=== PATIENT | male | born 1965 | race Caucasian/White ===

== ENCOUNTER 2016-11-11 11:03 | Day surgery (SDC) | payer OTHER ==
[~2016-11-11] VITALS: Ht 182.9 cm; Wt 75.8 kg
[~2016-11-11 11:03] MED LIST: ASPI-664 PO; ATEN-51 PO; ESCI20TA PO; HYDR-902 PO; LISI2.5T59 PO; LOVA40TA64 PO; ZOLP10TA5 PO
[2016-11-11 11:59] VITALS: Ht 182.9 cm; Wt 75.8 kg
[2016-11-11] MEDS ORDERED: MIDAZOLAM 1 MG/ML 2 ML INJ ONE (13:09)
[2016-11-11] MEDS ORDERED: PROPOFOL 40 ML ONE (13:09)
[2016-11-11] MEDS ORDERED: BISACODYL 10 MG SUPP PR SCH ×2 (13:30→19:30)
[2016-11-11 14:28] VITALS: BP 131/73; PULSE 62; RESP 18
--- NOTE | 2016-11-12 04:58 | GILP ---
DATE OF PROCEDURE: 11/11/2016 PREOPERATIVE DIAGNOSIS: Rectal bleeding, abdominal pain and bloating. PROCEDURE DONE: Colonoscopy with anesthesia. ANESTHESIOLOGIST: ____ POSTOPERATIVE DIAGNOSIS: Mediocre prep in the right colon. The rest of the wall was cleaned with w ashing. Hemorrhoids, grade II, and internal hemorrhoids, grade II, nonbleeding. DESCRIPTION OF PROCEDURE: The patient was put in left lateral decubitus after obtaining informed co nsent, was sedated, monitored by the anesthesiologist. Preoperatively, patient also received Dulcol ax suppositories. A colonoscopy was accomplished all the way to cecum. Appendiceal opening and ileo cecal valve were identified after cleaning with water lavage. Brownish soupy material was suctioned off and a thorough examination after lavaging the right colon was unremarkable. The cecum, ascendi ng colon, transverse colon and then descending colon and sigmoid colon essentially normal, much león aner here, left side. In the rectum including retroflexion done showed grade II internal hemorrhoids and otherwise unremarkable. Rectal exam also I did not feel any mass. IMPRESSION: Most likely bleeding from the internal hemorrhoids. I advised him to take Anusol suppo sitories and he will go back on his medication as before and recommend colonoscopy repeat in 5 years . If he continues to bleed, consider hemorrhoidectomy. Dictated By: WINTER DIA Conf#: [id number] DID#: [id number] CC: Antonino Sotelo;*End*
== END 2016-11-11 15:50 | disposition home or self-care (01) ==
LOC: GIL 11:03
PROVIDERS: ATTEND Internal Medicine
DX: K64.1 Second degree hemorrhoids (principal); I10 Essential (primary) hypertension; I25.10 Atherosclerotic heart disease of native coronary artery without angina pectoris; Z95.1 Presence of aortocoronary bypass graft; E78.5 Hyperlipidemia, unspecified
CPT/HCPCS: 45378; J2250; Z7610

== ENCOUNTER 2016-12-18 18:53 | Emergency (ER) | payer OTHER ==
[~2016-12-18] VITALS: Ht 182.9 cm; Wt 77.0 kg
[~2016-12-18 18:53] MED LIST changes: -ZOLP10TA5 PO
[2016-12-18 19:41] VITALS: Ht 182.9 cm; Wt 77.0 kg
--- NOTE | 2016-12-18 20:30 | ERD ---
ER Documentation Chief Complaint Date/Time DATE: 12/18/16 TIME: 20:27 Chief Complaint Laceration to the Right side of the head by a kitchen cabinet door HPI Patient is a 51-year-old male who presents with scalp laceration he sustained today against a kitchen cabinet door when he actually stood up. There is no loss of consciousness, dizziness, nausea, vomiting, visual changes, photosensitivity. Patient sustained a small laceration to the scalp that he states has been bleeding. Unsure last tetanus vaccination but does not want one today. ROS All systems reviewed and are negative except as per history of present illness. Medications Home Meds Reported Medications Aspirin (Low Dose Aspirin) 81 Mg Tablet.dr, 81 MG PO DAILY, #30 TAB 07/09/16 Escitalopram Oxalate* (Lexapro*) 20 Mg Tablet, 20 MG PO DAILY, #30 TAB 07/09/16 Atenolol* (Atenolol*) 25 Mg Tablet, 25 MG PO DAILY, #30 TAB 07/09/16 Lovastatin* (Altoprev*) 40 Mg Tab.sr.24h, 40 MG PO HS, TAB 07/09/16 Lisinopril* (Lisinopril*) 2.5 Mg Tablet, 2.5 MG PO DAILY, #30 TAB 07/09/16 Hydrocodone/Acetaminophen ([place] 10-325 Tablet) 1 Each Tablet, 1 EACH PO Q6 Y for PAIN, TAB 07/09/16 Allergies Allergies: Coded Allergies: No Known Drug Allergy (Verified Allergy, Unknown, 07/09/16) PMhx/Soc History of Surgery: Yes (CORONARY BYPASS 2002, ANGIOGRAM 2000) Anesthesia Reaction: No Hx Neurological Disorder: No Hx Respiratory Disorders: No Hx Cardiac Disorders: Yes (HEART ATTACK 2000) Hx Psychiatric Problems: Yes (DEPRESSION) Hx Miscellaneous Medical Probl: Yes (HIGH CHOLESTEROL) Hx Alcohol Use: No Hx Substance Use: No Hx Tobacco Use: Yes (1 PACK / DAY) Smoking Status: Current every day smoker FmHx Family History: No diabetes Physical Exam Vitals Vital Signs Date Time Temp Pulse Resp B/P Pulse Ox O2 Delivery O2 Flow Rate FiO2 12/18/16 19:41 97.7 67 18 124/74 98 Physical Exam Neck: Full range of motion... Resp: Clear to auscultation bilaterally Cardio: Regular rate and rhythm, no murmurs Skin: Small right-sided frontal scalp laceration approximately 1 cm, mild active bleeding Neur: Awake and alert Procedures/MDM Patient presents with small scalp laceration. He was irrigated with normal saline and 2 amparo were placed. He is well-appearing in no distress there is no loss of consciousness, he has not had any dizziness, neck pain, visual changes, photosensitivity. He is well-appearing in no distress. He is alert and oriented. I offered tetanus vaccination but he declined. He was instructed on wound care and instructed to return in 7-10 days for removal of sutures or sooner for any increased redness, swelling or pain. Recommended this patient follow up with her primary care doctor within 48 hours or return to the emergency room for any worsening of symptoms. However this time I do believe there is suitable for outpatient management. I answered all their questions and they agreed with the plan and were discharged home. Departure Diagnosis: Primary Impression: Scalp laceration Condition: Stable Patient Instructions: Laceration, Scalp Additional Instructions: Call your primary care doctor TOMORROW for an appointment during the next 1-2 days.See the doctor sooner or return here if your condition worsens before your appointment time. LOIDA DICK PA-C Dec 18, 2016 20:30
== END 2016-12-18 20:42 | disposition home or self-care (01) ==
LOC: FTE 18:53
DX: S01.01XA Laceration without foreign body of scalp, initial encounter (principal); F17.210 Nicotine dependence, cigarettes, uncomplicated; I50.9 Heart failure, unspecified; W22.8XXA Striking against or struck by other objects, initial encounter; Y92.000 Kitchen of unspecified non-institutional (private) residence as the place of occurrence of the external cause; Z95.1 Presence of aortocoronary bypass graft; Z79.82 Long term (current) use of aspirin

== ENCOUNTER 2017-06-16 16:42 | Inpatient (IN) | payer OTHER ==
[~2017-06-16] VITALS: Ht 165.1 cm; Wt 78.8 kg
[~2017-06-16 16:42] MED LIST changes: -ATEN-51 PO; +ATOR80TA75 PO; +CLOP75TA28 PO; +IBUP-1542 PO; -LOVA40TA64 PO; +METO-448 PO
[2017-06-16] MEDS ORDERED: ZOLP10TA PO (20:43)
[2017-06-16] MEDS ORDERED: IBUP200C11 PO (20:43)
[2017-06-16] MEDS ORDERED: ALPR1TAB2 PO (20:44)
[2017-06-16] MEDS ORDERED: FLUT16SP17 NASAL (20:45)
[2017-06-16] MEDS ORDERED: GABA100C14 PO (20:46)
[2017-06-16] MEDS ORDERED: OMEP20CA16 PO (20:46)
[2017-06-16] MEDS ORDERED: GABA300C16 PO (20:46)
[2017-06-16] MEDS ORDERED: CARI350T PO (20:47)
[2017-06-16] MEDS ORDERED: ALBU18HF INHALATION (20:47)
[2017-06-16 21:02] LABS: BASOPHIL # 0.1 10^3/ul (0.0-0.1); BASOPHILS % 0.7 % (0.0-2.0); EOSINOPHILS # 0.2 10^3/ul (0.0-0.5); EOSINOPHILS % 1.5 % (0.0-7.0); HEMATOCRIT 41.7 % (42.0-52.0); HEMOGLOBIN 14.1 g/dl (14.0-18.0); LYMPHOCYTES # 2.8 10^3/ul (0.8-2.9); LYMPHOCYTES % 26.1 % (15.0-51.0); MEAN CORPUSCULAR HEMOGLOBIN 30.9 pg (29.0-33.0); MEAN CORPUSCULAR HGB CONC 33.8 g/dl (32.0-37.0); MEAN CORPUSCULAR VOLUME 91.2 fl (82.0-101.0); MEAN PLATELET VOLUME 10.3 fl (7.4-10.4); MONOCYTE # 0.6 10^3/ul (0.3-0.9); MONOCYTES % 5.8 % (0.0-11.0); NEUTROPHIL # 7.1 10^3/ul (1.6-7.5); NEUTROPHILS % 65.7 % (39.0-77.0); PLATELET COUNT 204 10^3/UL (140-415); RED BLOOD COUNT 4.57 10^6/ul (4.70-6.10); WHITE BLOOD COUNT 10.8 10^3/ul (4.8-10.8)
[2017-06-16 21:18] LABS: INR 0.98
[2017-06-16 21:19] LABS: PARTIAL THROMBOPLASTIN TIME 31.9 Sec (25.0-35.0)
[2017-06-16 21:20] LABS: CALCIUM 9.7 mg/dl (8.4-10.2); CREATININE 0.72 mg/dl (0.61-1.24); POTASSIUM 5.1 mmol/L (3.5-5.1)
[2017-06-16] MEDS ORDERED: morphine 4 MG/ML VIAL IV STA (21:29)
[2017-06-16 21:31] LABS: TROPONIN-I 0.013 ng/ml (0.00-0.12)
[2017-06-16] MEDS ORDERED: IOHEXOL 350MG/ML 50 ML BTL ONE (21:37)
[2017-06-16] MEDS ORDERED: IOHEXOL 100 ML ONE (21:37)
[2017-06-16] MEDS ORDERED: SOD CHLORIDE 0.9% 100 ML ONE (21:37)
--- NOTE | 2017-06-16 22:15 | RADRPT ---
PROCEDURE: XR Chest. CLINICAL INDICATION: Chest pain. TECHNIQUE: Single frontal view. COMPARISON: 05/19/2017. FINDINGS: The lungs are clear. The heart size is normal. There is no pleural effusion. There is no pneumothorax. IMPRESSION: 1. Normal chest radiograph. 2. No change from 05/19/2017. RPTAT: QQ .Tang Dixon MD, MD Date Time Electronically viewed and signed by .Tnag Dixon MD, MD on 06/16/2017 22:15 .R/
--- NOTE | 2017-06-16 22:16 | ERA ---
ER Documentation Chief Complaint Date/Time DATE: 06/16/17 TIME: 22:16 Chief Complaint CP ONSET 1330. TN 4 WEEKS AGO HPI 51-year-old male with a history of coronary artery disease status post placement of 2 stents and CABG, with his last TN 4 weeks ago with stent placement here, presenting with chest pain that started today around 1:30 PM. States this pain is different than he had last time. Is a pressure-like pain in the left side of the chest radiating to the left shoulder, neck, and down into his left leg. He does state he has a history of lower back surgery and does have occasional lower extremity tingling. He denies any recent injuries. He does endorse associated shortness of breath with his chest pain. The pain is intermittent, at rest, nothing seems to make it better or worse. He denies any associated fever, chills, diaphoresis, loss of consciousness, nausea or vomiting. He is taking all of his medications as prescribed, including Plavix. ROS All systems reviewed and are negative except as per history of present illness. Medications Home Meds Active Scripts Metoprolol Tartrate* (Lopressor*) 25 Mg Tab, 25 MG PO BID for 30 Days, #60 TAB Prov:CINDY SMITH MD 05/21/17 Atorvastatin* (Atorvastatin*) 80 Mg Tablet, 80 MG PO DAILY@21 for 30 Days, TAB Prov:CINDY SMITH MD 05/21/17 Clopidogrel Bisulfate (Clopidogrel) 75 Mg Tablet, 75 MG PO DAILY for 30 Days, # 30 TAB ask cards for refill or not Prov:CINDY SMITH MD 05/21/17 Lisinopril* (Lisinopril*) 2.5 Mg Tablet, 2.5 MG PO DAILY, #30 TAB Prov:CINDY SMITH MD 05/21/17 Reported Medications Albuterol Sulfate* (Ventolin HFA*) 18 Gm Hfa.aer.ad, 2 PUFF INHALATION Q6H, #1 INHALER 06/16/17 Carisoprodol* (Soma*) 350 Mg Tablet, 350 MG PO Q8H Y for MUSCLE SPASMS, TAB 06/16/17 Omeprazole* (Omeprazole*) 20 Mg Capsule.dr, 20 MG PO DAILY, #30 CAP 06/16/17 Gabapentin* (Gabapentin*) 300 Mg Capsule, 300 MG PO QHS, #30 CAP 06/16/17 Gabapentin* (Gabapentin*) 100 Mg Capsule, 100 MG PO BID, #60 CAP 06/16/17 Fluticasone Propionate* (Fluticasone Propionate* Nasal) 50 Mcg/[place] - 16 Gm [place].susp, 1 SPRAY NASAL DAILY, #1 BOTTLE TO EACH NOSTRIL 06/16/17 Alprazolam* (Xanax*) 1 Mg Tab, 1 MG PO NEEDED Y for ANXIETY, TAB 06/16/17 Zolpidem Tartrate* (Ambien*) 10 Mg Tablet, 10 MG PO QHS Y for INSOMNIA, TAB 06/16/17 Ibuprofen* (Advil*) 200 Mg Capsule, 200 MG PO Q6H Y for PAIN, CAP 06/16/17 Aspirin (Low Dose Aspirin) 81 Mg Tablet.dr, 81 MG PO DAILY, #30 TAB 07/09/16 Escitalopram Oxalate* (Lexapro*) 20 Mg Tablet, 20 MG PO DAILY, #30 TAB 07/09/16 Hydrocodone/Acetaminophen ([place] 10-325 Tablet) 1 Each Tablet, 1 EACH PO Q6 Y for PAIN, TAB 07/09/16 Discontinued Scripts Ibuprofen* (Ibuprofen*) 600 Mg Tablet, 600 MG PO Q6H for 2 Days, #10 TAB 600 mg q 12 x2 days Prov:CINDY SMITH MD 05/21/17 Allergies Allergies: Coded Allergies: No Known Drug Allergy (Verified Allergy, Unknown, 06/16/17) PMhx/Soc History of Surgery: Yes (back, bypass, cardiac cath) Anesthesia Reaction: No Hx Neurological Disorder: No Hx Respiratory Disorders: Yes (bronchitis and mild emphasyma) Hx Cardiac Disorders: Yes (htn, mi, old stent) Hx Psychiatric Problems: Yes (depression) Hx Miscellaneous Medical Probl: No Hx Alcohol Use: No Hx Substance Use: No Hx Tobacco Use: No Smoking Status: Former smoker FmHx Family History: No coronary disease Physical Exam Vitals Vital Signs Date Time Temp Pulse Resp B/P Pulse Ox O2 Delivery O2 Flow Rate FiO2 06/16/17 23:29 2 06/16/17 22:36 55 20 129/83 100 Room Air 06/16/17 16:52 98.0 72 115/60 99 Physical Exam Const: Appearing, no apparent distress Head: Atraumatic Eyes: Normal Conjunctiva ENT: Normal External Ears, Nose and Mouth. Neck: Full range of motion..~ No meningismus. JVD Resp: Clear to auscultation bilaterally Cardio: Regular rate and rhythm, no murmurs. 2+ radial pulses equal in bilateral upper extremities. 2+ DP pulses bilaterally, unable to palpate PT pulses bilaterally. Cap refill less than 2 seconds in all 4 extremities. Abd: Soft, non tender, non distended. Normal bowel sounds. No pulsatile mass Skin: No petechiae or rashes Back: No midline or flank tenderness Ext: No cyanosis, or edema Neur: Awake and alert and oriented 3, PERRLA, EOMI, cranial nerves intact. Strength and sensation is intact in all 4 extremities, however diminished to painful stimuli in the left foot. Psych: Normal Mood and Affect Result Diagram: 06/16/17204106/16/172041 Results 24 hrs Laboratory Tests Test 06/16/17 20:42 White Blood Count 10.810^3/ul Red Blood Count 4.5710^6/ul Hemoglobin 14.1g/dl Hematocrit 41.7% Mean Corpuscular Volume 91.2fl Mean Corpuscular Hemoglobin 30.9pg Mean Corpuscular Hemoglobin Concent 33.8g/dl Red Cell Distribution Width 12.0% Platelet Count 53406^3/UL Mean Platelet Volume 10.3fl Neutrophils % 65.7% Lymphocytes % 26.1% Monocytes % 5.8% Eosinophils % 1.5% Basophils % 0.7% Nucleated Red Blood Cells % 0.0/100WBC Neutrophils # 7.110^3/ul Lymphocytes # 2.810^3/ul Monocytes # 0.610^3/ul Eosinophils # 0.210^3/ul Basophils # 0.110^3/ul Nucleated Red Blood Cells # 0.010^3/ul Prothrombin Time 13.0Sec Prothrombin Time Ratio 1.0 INR International Normalized Ratio 0.98 Activated Partial Thromboplast Time 31.9Sec Sodium Level 138mmol/L Potassium Level 5.1mmol/L Chloride Level 99mmol/L Carbon Dioxide Level 32mmol/L Anion Gap 12 Blood Urea Nitrogen 12mg/dl Creatinine 0.72mg/dl Glucose Level 134mg/dl Calcium Level 9.7mg/dl Troponin I 0.013ng/ml Current Medications Medications (Trade) Dose Ordered Sig/Echo Route PRN Reason Start Time Stop Time Status Last Admin Dose Admin Morphine Sulfate (morphine) 4 mg ONCE STAT IV 06/16/17 21:29 06/16/17 21:30 DC 06/16/17 21:45 IV Flush 10 ml 10 ml STK-MED ONCE .ROUTE 06/16/17 21:37 06/16/17 21:38 DC 06/16/17 22:27 Sodium Chloride 100 ml @ ud STK-MED ONCE .ROUTE 06/16/17 21:37 06/16/17 21:38 DC 06/16/17 22:27 Iohexol (Omnipaque) 100 ml @ ud STK-MED ONCE .ROUTE 06/16/17 21:37 06/16/17 21:38 DC 06/16/17 22:27 Iohexol (Omnipaque 350mg/ ml) 50 ml STK-MED ONCE .ROUTE 06/16/17 21:37 06/16/17 21:38 DC 06/16/17 22:28 Ondansetron HCl (Zofran Inj) 4 mg ER BRIDGE PRN IV NAUSEA AND/OR VOMITING 06/17/17 00:00 06/17/17 23:59 Acetaminophen (Tylenol Tab) 650 mg ER BRIDGE PRN PO MILD PAIN/FEVER 06/17/17 00:00 06/17/17 23:59 Aspirin (Aspirin) 162 mg ONCE ONCE PO 06/17/17 00:00 06/17/17 00:01 DC Procedures/[facility] EKG #1: Rate/Rhythm: Normal Sinus Rhythm QRS, ST, T-waves: No changes consistent w/ acute ischemia Impression: No evidence of ischemia or arrhythmia EKG #2: Rate/Rhythm: Normal Sinus Rhythm QRS, ST, T-waves: No changes consistent w/ acute ischemia Impression: No evidence of ischemia or arrhythmia Chest x-ray shows no acute abnormalities CTA chest, abdomen, pelvis: No dissection or pulmonary embolism. No other acute abnormalities. [facility] Patient is presenting with chest pain concerning for a cardiac etiology. His vitals are stable. My suspicion for dissection is intermediate, so a CTA was done which ruled out dissection. His initial troponin was negative. However the patient has high risk for an adverse cardiac event and will need admission for coronary syndrome rule out. I suspect unstable angina. Aspirin was given orally. Morphine was given for pain with improvement. With regard to his left lower extremity heaviness and tingling, I suspect that may be secondary to his chronic back issues. However if his symptoms progressively worsen, he may need additional imaging of his back. However currently I do not think this is now necessary in the emergency room. Accepting Care Team: Current data and ongoing care discussed. Time: Time of admission Primary Provider: Esmer Bro Consulting: none Outstanding Data: none Departure Diagnosis: Primary Impression: Chest pain Qualified Code: R07.9 - Chest pain, unspecified type Additional Impression: History of TN (myocardial infarction) Condition: EILEEN Kessler MD Jun 16, 2017 22:16
--- NOTE | 2017-06-16 23:17 | RADRPT ---
PROCEDURE: CT angiogram chest abdomen and pelvis. CLINICAL INDICATION: Chest and back pain TECHNIQUE: CT angiogram of the chest/abdomen/pelvis was performed utilizing axial images with claude nstructions in sagittal and coronal planes after the uneventful intravenous administration of 90 cc Isovue 370 contrast. The administered radiation dose is CTDI 10 mGy, DLP 1140 mGy-cm. One or more of the following dose reduction techniques were used: automated exposure control, adjustment of the mA and/or kV according to patient size and/or use of iterative reconstruction technique. COMPARISON: No pertinent prior examinations are submitted for comparison. FINDINGS: Aortogram: There is no evidence of aortic dissection or aneurysm. Major branches of the aorta are patent within the chest, abdomen pelvis. The bilateral common, superficial femoral and popliteal art eries are unremarkable. There is little to no enhancement within the bilateral calf arteries, especi ally on the left. This is likely due to bolus timing. A few scattered atherosclerotic calcifications are noted within the intra-abdominal aorta. Pulmonary angiogram: The pulmonary arteries are adequately opacified to the level of the segmental pulmonary artery branches. There is minimal respiratory motion artifact. There is no evidence of p ulmonary embolus. Chest: The lungs are clear. The tracheobronchial tree is patent. There is no evidence of pleural effusion . The heart is normal in size. No pericardial effusion is seen. Multiple diverticula are noted off of the left atrial appendage. There is no evidence of mediastinal or hilar adenopathy. Mild bilateral gynecomastia is noted. Abdomen: The liver, spleen, pancreas, gallbladder, kidneys and adrenal glands are unremarkable. There is no evidence of bowel obstruction. The appendix is normal. There is no intra-abdominal adenopathy of free fluid. Pelvis: There is no evidence of pelvic adenopathy or free fluid. The prostate and bladder are unremarkable. Osseous structures: Unremarkable. IMPRESSION: No evidence of aortic dissection or aneurysm. No evidence of pulmonary embolus. Multiple left atrial appendage diverticula. RPTAT: HIKT .Reji Hanley MD, Date Time Electronically viewed and signed by .Reji Hanley MD, on 06/16/2017 23:17 .T/
[2017-06-17] VITALS (10 sets, daily range): BP systolic 97–108; BP diastolic 55–61; PULSE 52–65; RESP 18–19; Ht 165.1 cm; Wt 78.8 kg
[2017-06-17] MEDS ORDERED: ASPIRIN 81 MG TAB PO ONE
[2017-06-17] MEDS ORDERED: ALPRAZOLAM 1 MG TAB PO PRN (02:30)
[2017-06-17] MEDS ORDERED: ZOLPIDEM 5 MG TAB PO PRN (02:30)
[2017-06-17] MEDS ORDERED: CARISOPRODOL 350 MG TAB PO PRN (02:30)
[2017-06-17] MEDS ORDERED: HYDROCODONE/APAP (10/325) TAB PO PRN (02:30)
[2017-06-17] MEDS ORDERED: ATORVASTATIN 80 MG TAB PO SCH ×2 (03:00→21:00)
[2017-06-17] MEDS ORDERED: morphine 4 MG/ML VIAL IV PRN (03:00)
[2017-06-17] MEDS ORDERED: ONDANSETRON 4 MG INJ IV PRN ×2 (03:00)
[2017-06-17 04:13] LABS: CREATINE KINASE 59 IU/L (23-200)
[2017-06-17 04:25] LABS: CK-MB 0.98 ng/ml (0.0-2.4); TROPONIN-I < 0.012 ng/ml (0.00-0.12)
[2017-06-17] MEDS ORDERED: ACETAMINOPHEN 325 MG TAB PO PRN ×2 (05:30)
[2017-06-17] MEDS ORDERED: PANTOPRAZOLE (EC) 40 MG TAB PO SCH (06:00)
[2017-06-17 08:45] LABS: CREATINE KINASE 64 IU/L (23-200)
[2017-06-17 08:59] LABS: BASOPHIL # 0.1 10^3/ul (0.0-0.1); BASOPHILS % 1.2 % (0.0-2.0); EOSINOPHILS # 0.4 10^3/ul (0.0-0.5); EOSINOPHILS % 4.2 % (0.0-7.0); HEMATOCRIT 43.4 % (42.0-52.0); HEMOGLOBIN 14.9 g/dl (14.0-18.0); LYMPHOCYTES # 2.7 10^3/ul (0.8-2.9); LYMPHOCYTES % 32.2 % (15.0-51.0); MEAN CORPUSCULAR HGB CONC 34.3 g/dl (32.0-37.0); MEAN CORPUSCULAR VOLUME 90.4 fl (82.0-101.0); MONOCYTE # 0.7 10^3/ul (0.3-0.9); MONOCYTES % 8.3 % (0.0-11.0); NEUTROPHIL # 4.5 10^3/ul (1.6-7.5); NEUTROPHILS % 53.9 % (39.0-77.0); PLATELET COUNT 200 10^3/UL (140-415); RED CELL DISTRIBUTION WIDTH 12.2 % (11.5-14.5); WHITE BLOOD COUNT 8.3 10^3/ul (4.8-10.8)
[2017-06-17 09:00] LABS: CK-MB 0.99 ng/ml (0.0-2.4); TROPONIN-I < 0.012 ng/ml (0.00-0.12)
[2017-06-17] MEDS ORDERED: ASPIRIN (EC) 81 MG TAB PO SCH (09:00)
[2017-06-17] MEDS ORDERED: FLUTICASONE 0.05% 16 GM NAS SPRAY NASAL SCH (09:00)
[2017-06-17] MEDS ORDERED: LISINOPRIL 5 MG TAB PO SCH (09:00)
[2017-06-17] MEDS ORDERED: CLOPIDOGREL 75 MG TAB PO SCH (09:00)
[2017-06-17] MEDS ORDERED: ESCITALOPRAM 10 MG TAB PO SCH (09:00)
[2017-06-17] MEDS ORDERED: METOPROLOL 25 MG TAB PO SCH (09:00)
[2017-06-17 09:27] LABS: POTASSIUM 4.5 mmol/L (3.5-5.1)
[2017-06-17 09:57] LABS: CALCIUM 9.7 mg/dl (8.4-10.2); CREATININE 0.73 mg/dl (0.61-1.24)
--- NOTE | 2017-06-17 11:28 | PN ---
Date/Time of Note Date/Time of Note DATE: 06/17/17 TIME: 11:23 Assessment/Plan VTE Prophylaxis VTE Prophylaxis Intervention: contraindicated, other (on plavix) Lines/Catheters IV Catheter Type (from Nrsg): [place] Assessment/Plan Chief Complaint/Hosp Course 51 y/o with # Chest pain ? Angina, unlikely Pericarditis/pleuritis. CT angio negative for PE /Aortic dissection # HX STEMI with PCI of RCA on 05/19/17 # CAD s/p CABG # htn # Peripheral neuropathy # Smoker Recs - c/w ASA/ MTP/ Lisnopril/ statin as long as BP tolerates - Dr Miguel to see informed office ( his cardiolgist as outpatient) - ECHO - Quit smoking - Trop are negative Problems: Subjective 24 Hr Interval Summary Free Text/Dictation Denies any chest pain currently Pt was supposed to see Dr Miguel in clinic [facility] Exam/Review of Systems Vital Signs Vitals Vital Signs Date Time Temp Pulse Resp B/P Pulse Ox O2 Delivery O2 Flow Rate FiO2 06/17/17 09:29 98.4 57 19 98/57 97 Room Air 06/16/17 23:29 2 Intake and Output 06/16/17 06/16/17 06/17/17 15:00 23:00 07:00 Intake Total 240 ml Balance 240 ml Exam Gen:awake,alert Neck:supple CVS:Regular rate and rthym Lungs:clear Abdomen:soft Ext : no edema Results Result Diagram: 06/17/17 0740 06/17/17 0740 Results 24 hrs Laboratory Tests Test 06/16/17 20:42 06/17/17 02:44 06/17/17 07:40 White Blood Count 10.8 # 8.3 # Red Blood Count 4.57 L 4.80 Hemoglobin 14.1 14.9 Hematocrit 41.7 L 43.4 Mean Corpuscular Volume 91.2 90.4 Mean Corpuscular Hemoglobin 30.9 31.0 Mean Corpuscular Hemoglobin Concent 33.8 34.3 Red Cell Distribution Width 12.0 12.2 Platelet Count 204 200 Mean Platelet Volume 10.3 10.0 Neutrophils % 65.7 53.9 Lymphocytes % 26.1 32.2 Monocytes % 5.8 8.3 Eosinophils % 1.5 4.2 Basophils % 0.7 1.2 Nucleated Red Blood Cells % 0.0 0.0 Neutrophils # 7.1 4.5 Lymphocytes # 2.8 2.7 Monocytes # 0.6 0.7 Eosinophils # 0.2 0.4 Basophils # 0.1 0.1 Nucleated Red Blood Cells # 0.0 0.0 Prothrombin Time 13.0 Prothrombin Time Ratio 1.0 INR International Normalized Ratio 0.98 Activated Partial Thromboplast Time 31.9 Sodium Level 138 139 Potassium Level 5.1 4.5 Chloride Level 99 101 Carbon Dioxide Level 32 H 30 Anion Gap 12 13 Blood Urea Nitrogen 12 11 Creatinine 0.72 0.73 Glucose Level 134 103 Calcium Level 9.7 9.7 Troponin I 0.013 < 0.012 < 0.012 Creatine Kinase 59 64 Creatine Kinase Index 1.7 1.5 Creatinine Kinase MB (Mass) 0.98 0.99 Medications Medications Current Medications Alprazolam (Xanax) 1 mg Q8 PRN PO ANXIETY; Start 06/17/17 at 02:30 Aspirin (Halfprin) 81 mg DAILY PO Last administered on 06/17/17 09:03; Admin Dose 81 MG; Start 06/17/17 at 09:00 Clopidogrel Bisulfate (plaVIX) 75 mg DAILY PO Last administered on 06/17/17 09 :04; Admin Dose 75 MG; Start 06/17/17 at 09:00 Escitalopram Oxalate (Lexapro) 20 mg DAILY PO Last administered on 06/17/17 09 :03; Admin Dose 20 MG; Start 06/17/17 at 09:00 Fluticasone Propionate (Flonase 0.05% Nasal) 1 spray DAILY NASAL Last administered on 06/17/17 09:03; Admin Dose 1 SPRAY; Start 06/17/17 at 09:00 Gabapentin (Neurontin) 300 mg QHS PO ; Start 06/17/17 at 21:00 Acetaminophen/ Hydrocodone Bitart ([place] (10/325)) 1 tab Q6 PRN PO PAIN; Start 06/17/17 at 02:30 Lisinopril (Zestril) 2.5 mg DAILY PO Last administered on 06/17/17 09:08; Admin Dose 2.5 MG; Start 06/17/17 at 09:00 Metoprolol Tartrate (Lopressor) 25 mg BID PO ; Start 06/17/17 at 09:00 Zolpidem Tartrate (Ambien) 10 mg QHS PRN PO INSOMNIA Last administered on 03:02; Admin Dose 10 MG; Start 06/17/17 at 02:30 Pantoprazole (Protonix Tab) 40 mg DAILY@06 PO ; Start 06/17/17 at 06:00 Atorvastatin Calcium (Lipitor) 80 mg DAILY@21 PO Last administered on 03:13; Admin Dose 80 MG; Start 06/17/17 at 03:00 Morphine Sulfate (morphine) 4 mg Q4H PRN IV PAIN Last administered on 03:13; Admin Dose 4 MG; Start 06/17/17 at 03:00 Ondansetron HCl (Zofran Inj) 4 mg Q4H PRN IV NAUSEA AND/OR VOMITING; Start at 03:00 Acetaminophen (Tylenol Tab) 650 mg Q6H PRN PO PAIN AND OR ELEVATED TEMP; Start 06/17/17 at 05:30 CINDY SMITH MD Jun 17, 2017 11:28
--- NOTE | 2017-06-17 12:05 | HP ---
DATE OF ADMISSION: 06/16/2017 REASON FOR ADMISSION: Chest pain. HISTORY OF PRESENT ILLNESS: This is a 51-year-old male with a past medical history of hypertension, coronary artery disease, history of single-vessel COOPER to LAD, CABG in 2000 at [place], history of smoking, who had a recent admission from May 19, 2017 to May 21, [address]-elevation ND. At that time, patient was taken to [facility] and had a PCI of the right coronary artery. Patient had pericarditis post ND and was in ICU. Patient was continued on aspirin, Lipitor, Plavix, metoprolol, lisinopril, and also given prescription for ibuprofen 600 mg p.o. 2 days. Since discharge, patient said that she is supposed to see a crust sorter Dr. Miguel tomorrow in the clinic. Sometimes he had been feeling weak, tired. Last evening, patient started having left-sided chest pain, pressure like, radiating to the left arm. The pain was coming and going. It was intermittent. He called the paramedics but paramedics advised him to come to the emergency department. However, patient refused, but then the pain persisted and he came to the ER last night. Patient also had some shortness of breath and some dizziness associated with the episodes. However, patient stated that this episode was different from the one which he had on 05/19. Patient denies any orthopnea or PND or lower extremity edema. The patient's pain was intermittent at rest, nothing seemed to make it better or worse. Patient also has been having some cough. PAST MEDICAL HISTORY: 1. History of coronary artery disease with a history of single- vessel COOPER to LAD, CABG in [address]. [address]-elevation ND status post PCI of RCA on May 19. 3. Hypertension. 4. Smoker. ALLERGIES: NONE. PAST SURGICAL HISTORY: Coronary artery bypass. MEDICATIONS: At home were: 1. Aspirin 81. 2. Lipitor 80. 3. Plavix 75. 4. Metoprolol 25 b.i.d. 5. Lisinopril 2.5. 6. Lexapro 20. 7. Gabapentin 100 b.i.d. SOCIAL HISTORY: Patient is a smoker. Denies any history of alcohol or any drug use. FAMILY HISTORY: No history of cardiac disease in the family. REVIEW OF SYSTEMS: Patient complained of chest pain, shortness of breath and some dizziness. Denies any headache, any blurry vision. Denies any nausea, vomiting, diarrhea. Denies any hematemesis, any melena, any bright red blood per rectum. Patient has chronic tingling and numbness in the lower extremities which is due to chronic back surgery. Denied any focal neurological deficits. PHYSICAL EXAMINATION: VITAL SIGNS: Patient's heart rate is 57, blood pressure 98/57, respirations 19, patient is saturating 97 percent. GENERAL: Currently denies any chest pain. HEENT: Pupils equal, round, reactive to light. NECK: Supple. No JVD. HEART: Regular rate, rhythm. No murmur, rub, or gallop. LUNGS: Clear to auscultate bilaterally. ABDOMEN: Soft, nontender, nondistended. Positive normoactive bowel sounds. EXTREMITIES: No clubbing, cyanosis, or edema. NEUROLOGIC: Nonfocal. DIAGNOSTIC DATA: BMP within normal limits. White count of 8.3, hemoglobin 14.9, platelet count of 200. Troponin less than 0.012 x2, third troponin 0.013. Chest x-ray was negative. Patient also had a CT thorax and abdominal angio that showed no evidence of aortic dissection or aneurysm. No evidence of pulmonary embolism. Multiple left atrial appendage diverticula. EKG showed some sinus bradycardia, no acute ST-T wave changes. IMPRESSION: This is a 51-year-old male presenting with: 1. Chest pain. Patient has a recent ST-elevation myocardial infarction status post percutaneous coronary intervention to right coronary artery. Serial troponins were negative. EKG is negative. However, patient is very high risk. Could have been a component of pleural fluid pleuritis or pericardial effusion. Patient's CT angio is negative for any PE or any aortic aneurysm. 2. History of coronary artery disease with a history of coronary artery bypass graft. 3. Hypertension. 4. Smoker. 5. History of depression. 6. History of peripheral neuropathy. PLAN: At this period of time, patient is admitted to the [facility]. Serial troponins are negative. Will get serial EKGs. Patient will be continued on aspirin, Plavix, lisinopril, metoprolol. We will order an echo. I will call cardiology consultation with Dr. Miguel. The rest of the treatment will depend on the patient's hospitalization course. Dictated By: MD ANTONETTE Benavides/sedrick/maia /Document#: [id number]
--- NOTE | 2017-06-17 18:14 | PDOCDIS ---
Discharge Instructions DIAGNOSIS Discharge Diagnosis Atypical chest pain CONDITION Patient Condition: Fair HOME CARE INSTRUCTIONS: Diet Instructions: Low Fat /CholesterolSpecial Diet: Low fat Low cholesterol ACTIVITY: Activity Restrictions: Slowly Increase Activity FOLLOW UP/APPOINTMENTS Follow-up Plan f/u Dr Lamont zhang in clinic f/u PCP in 2 weeks CINDY SMITH MD Jun 17, 2017 18:14
[2017-06-17] MEDS ORDERED: METO-448 PO (18:16)
--- NOTE | 2017-06-17 18:18 | CONS ---
Date/Time of Note Date/Time of Note DATE: 06/17/17 TIME: 18:14 Assessment/Plan Assessment/Plan Additional Assessment/Plan Chest pain, resolved Coronary disease with history of COOPER to LAD and recent PCI to RCA April 2017 Ischemic cardiomyopathy with ejection fraction currently 45-50% -Patient with symptoms of chest discomfort radiating to his shoulders and legs which happened at rest. Serial cardiac enzymes have remained negative, patient status post CT aortogram which ruled out PE as well as aortic dissection. Repeat echocardiogram with no evidence of pericardial effusion with improvement in ejection fraction. He has had no further symptoms since admission and denies exertional symptoms prior to this. Would recommend continuing dual antiplatelet therapy for minimum of 1 year to maintain stent patency, continue statin therapy, decrease Lopressor to 12.5 mg p.o. twice daily secondary to blood pressure on the lower and and continue DARINEL inhibitor as blood pressure renal function permits. Otherwise no further inpatient cardiac workup needed at the current time. Consultation Date/Type/Reason Admit Date/Time Jun 16, 2017 at 23:32 Type of Consultation: cv Reason for Consultation Chest pain Hx of Present Illness This is a 51-year-old male with past medical history of coronary artery disease with history of COOPER to LAD and a recent PCI to RCA in the setting of a myocardial infarction, cardiomyopathy who presents with symptoms of chest discomfort. Symptoms began yesterday afternoon while patient was sitting on the couch. He had a sensation of chest discomfort and back pain which radiated to his shoulders and to his legs. There is no associated shortness of breath, or dizziness but he did feel lightheaded. He came to the emergency room for further evaluation care. He has had no further symptoms since then. He denies exertional chest pain or shortness of breath since his recent myocardial infarction in April 2017. He has been compliant with his dual antiplatelet therapy. He does admit that his blood pressure has been in the low 100s. 12 point review of systems was performed with all pertinent positives and negatives mentioned above and all else is negative Past Medical History Medical History: congestive heart failure, coronary artery disease, hypertension Past Surgical History Past Surgical Hx: angioplasty, coronary bypass surgery Social History Smoking Status: Former smoker Exam/Review of Systems Vital Signs Vitals Vital Signs Date Time Temp Pulse Resp B/P Pulse Ox O2 Delivery O2 Flow Rate FiO2 06/17/17 16:27 60 06/17/17 15:54 98.2 19 105/55 97 06/17/17 09:29 Room Air 06/16/17 23:29 2 Intake and Output 06/16/17 06/16/17 06/17/17 15:00 23:00 07:00 Intake Total 240 ml Balance 240 ml Exam No apparent distress Constitutional: alert, oriented Head: normocephalic Respiratory: clear to auscultation, normal air movement Cardiovascular: other (S1-S2 heard), regular rate and rhythm Gastrointestinal: bowel sounds, non-tender, soft Extremities: other (No edema) Results Result Diagram: 06/17/17 0740 06/17/1740 Results 24 hrs Laboratory Tests Test 06/16/17 20:42 06/17/17 02:44 06/17/17 07:40 White Blood Count 10.8 # 8.3 # Red Blood Count 4.57 L 4.80 Hemoglobin 14.1 14.9 Hematocrit 41.7 L 43.4 Mean Corpuscular Volume 91.2 90.4 Mean Corpuscular Hemoglobin 30.9 31.0 Mean Corpuscular Hemoglobin Concent 33.8 34.3 Red Cell Distribution Width 12.0 12.2 Platelet Count 204 200 Mean Platelet Volume 10.3 10.0 Neutrophils % 65.7 53.9 Lymphocytes % 26.1 32.2 Monocytes % 5.8 8.3 Eosinophils % 1.5 4.2 Basophils % 0.7 1.2 Nucleated Red Blood Cells % 0.0 0.0 Neutrophils # 7.1 4.5 Lymphocytes # 2.8 2.7 Monocytes # 0.6 0.7 Eosinophils # 0.2 0.4 Basophils # 0.1 0.1 Nucleated Red Blood Cells # 0.0 0.0 Prothrombin Time 13.0 Prothrombin Time Ratio 1.0 INR International Normalized Ratio 0.98 Activated Partial Thromboplast Time 31.9 Sodium Level 138 139 Potassium Level 5.1 4.5 Chloride Level 99 101 Carbon Dioxide Level 32 H 30 Anion Gap 12 13 Blood Urea Nitrogen 12 11 Creatinine 0.72 0.73 Glucose Level 134 103 Calcium Level 9.7 9.7 Troponin I 0.013 < 0.012 < 0.012 Creatine Kinase 59 64 Creatine Kinase Index 1.7 1.5 Creatinine Kinase MB (Mass) 0.98 0.99 Medications Medications Current Medications Alprazolam (Xanax) 1 mg Q8 PRN PO ANXIETY; Start 06/17/17 at 02:30 Aspirin (Halfprin) 81 mg DAILY PO Last administered on 06/17/17 09:03; Admin Dose 81 MG; Start 06/17/17 at 09:00 Clopidogrel Bisulfate (plaVIX) 75 mg DAILY PO Last administered on 06/17/17 09 :04; Admin Dose 75 MG; Start 06/17/17 at 09:00 Escitalopram Oxalate (Lexapro) 20 mg DAILY PO Last administered on 06/17/17 09 :03; Admin Dose 20 MG; Start 06/17/17 at 09:00 Fluticasone Propionate (Flonase 0.05% Nasal) 1 spray DAILY NASAL Last administered on 06/17/17 09:03; Admin Dose 1 SPRAY; Start 06/17/17 at 09:00 Gabapentin (Neurontin) 300 mg QHS PO ; Start 06/17/17 at 21:00 Acetaminophen/ Hydrocodone Bitart ([place] (10/325)) 1 tab Q6 PRN PO PAIN; Start 06/17/17 at 02:30 Lisinopril (Zestril) 2.5 mg DAILY PO Last administered on 06/17/17 09:08; Admin Dose 2.5 MG; Start 06/17/17 at 09:00 Metoprolol Tartrate (Lopressor) 25 mg BID PO ; Start 06/17/17 at 09:00 Zolpidem Tartrate (Ambien) 10 mg QHS PRN PO INSOMNIA Last administered on 03:02; Admin Dose 10 MG; Start 06/17/17 at 02:30 Pantoprazole (Protonix Tab) 40 mg DAILY@06 PO ; Start 06/17/17 at 06:00 Atorvastatin Calcium (Lipitor) 80 mg DAILY@21 PO Last administered on 03:13; Admin Dose 80 MG; Start 06/17/17 at 03:00 Morphine Sulfate (morphine) 4 mg Q4H PRN IV PAIN Last administered on 03:13; Admin Dose 4 MG; Start 06/17/17 at 03:00 Ondansetron HCl (Zofran Inj) 4 mg Q4H PRN IV NAUSEA AND/OR VOMITING; Start at 03:00 Acetaminophen (Tylenol Tab) 650 mg Q6H PRN PO PAIN AND OR ELEVATED TEMP; Start 06/17/17 at 05:30 Procedures Procedures ECG demonstrates sinus bradycardia at 55 bpm, QRS 102 ms, inferior Q waves Jose Shin DO Jun 17, 2017 18:18
--- NOTE | 2017-06-17 18:46 | RADRPT ---
Echocardiogram Report Patient Name: ROSE CASTRO Gender: Male Date: 1965 Study Date: 17-Jun-2017 Gift Shop Clerk: Andrew [facility] Location: 5548 Ref. Physician: CINDY SMITH Quality: Adequate Procedures: Transthoracic echocardiogram with complete 2D, M-Mode, and doppler examination. Indications: Chest Pain, check WMA. 2D/M Mode Doppler Measurement Value Normal Ranges Measurement Value Normal Ranges LVIDd 2D 4.8 3.5 - 5.6 cm AV Peak Breezy 1.2 m/sec LVPWd 2D 1.0 0.6 - 1.1 cm AV Peak PG 5.0 mmHg IVSd 2D 1.1 0.6 - 1.1 cm LVOT Peak Breezy 1.1 m/sec IVS/LVPW 2D 1.0 LVOT Peak PG 5.0 mmHg AoR Diam 2D 3.5 2.0 - 3.7 cm MV E Peak Breezy 0.7 m/sec EDV 2D 114.0 cm3 MV A Peak Breezy 0.5 m/sec MV E/A 1.4 MV Decel Time 232 msec MV E/A 1.4 Findings Left Ventricle: Lower limits of normal systolic function. Normal left ventricular cavity size. Mild concentric left ventricular hypertrophy. Ejection fraction is visually estimated at 50 %. Abnormal Diastolic Function. Right Ventricle: Normal right ventricular size. Normal right ventricular systolic function. Left Atrium: The left atrium is normal in size. Right Atrium: The right atrium is normal in size. Mitral Valve: Mild mitral leaflet calcification. Trace mitral regurgitation. Aortic Valve: Normal appearance of the aortic valve. No significant aortic stenosis or insufficiency. Tricuspid Valve: Normal appearance and function of the tricuspid valve with trace physiologic regurgitation. Pulmonic Valve: Pulmonic valve not well visualized. There is trace pulmonic regurgitation. Pericardium: Normal pericardium with no significant pericardial effusion. Aorta: Normal aortic root. IVC: Normal size and normal respiratory collapse consistent with normal right atrial pressure. Conclusions Lower limits of normal systolic function. Normal left ventricular cavity size. Mild concentric left ventricular hypertrophy. Ejection fraction is visually estimated at 50 %. Abnormal Diastolic Function. Normal right ventricular size. Normal right ventricular systolic function. The left atrium is normal in size. The right atrium is normal in size. No significant valvular stenosis or regurgitation seen. Normal pericardium with no significant pericardial effusion. Electronically Signed By: Jose Shin 17-Jun-2017 18:46:08 -0700 Patient Name: ROSE CASTRO Study Date: 17-Jun-2017 [id number]
[2017-06-17] MEDS ORDERED: GABAPENTIN 300 MG CAP PO SCH (21:00)
--- NOTE | 2017-06-18 04:40 | DS ---
DATE OF ADMISSION: 06/16/2017 DATE OF DISCHARGE: 06/17/2017 HISTORY OF PRESENT ILLNESS: A 51-year-old male with a past medical history of hypertension, coronary artery disease, history of single-vessel COOPER to LAD CABG in 2000, with recent admission from 04/29/2017 to 05/21/[address]-elevation MO. Patient was taken to [facility], had a PCI of the right coronary artery. Patient had pericarditis post MO, was on ICU, was continued on aspirin, Lipitor, Plavix, metoprolol, lisinopril, also given prescription for ibuprofen for 6 days. Since discharge, patient said he was supposed to see cardiology Dr. Miguel tomorrow in the clinic. Sometimes he had been feeling weak and tired. Last evening patient was having left-sided chest pain radiating to the left arm intermittent. He called the paramedics who advised him to go to the ER. However, the patient refused. The pain persisted and he came to the ER. He also had some shortness of breath and some dizziness associated with the episodes. Denies any orthopnea, PND, any lower extremity swelling. Patient had been taking his aspirin and Plavix and all his medications at home. HOSPITAL COURSE: On admission, vital signs were stable. The patient had serial troponins, EKG, BNP within normal limits. Troponin was 3. Troponins were negative. EKG showed some sinus bradycardia, no acute ST-T wave changes. The patient was admitted to telemetry. The patient also had a CT angio which was negative for any PE or any aortic aneurysm. The chest pain was completely resolved. He did not have any association with breathing or any positional changes. The patient was seen by Dr. Shin working with Dr. Miguel. Cardiology consultation as per him. The patient can be discharged home with decreasing the dose of metoprolol 12.5 b.i.d. The patient is currently this chest pain feeling and currently being discharged on metoprolol 12.5 b.i.d. FINAL DIAGNOSES: 1. Atypical chest pain. 2. History of coronary artery disease with history of single- vessel COOPER to LAD CABG in 2000, status post recent ST elevation MO status post PCI of RCA. 3. Hypertension. 4. Smoker. HOME MEDICATIONS: 1. Aspirin 81. 2. Lipitor 80. 3. Plavix 75. 4. Metoprolol decreased to 12.5 b.i.d. 5. Lisinopril 2.5. 6. Lexapro 20. 7. Gabapentin 100 b.i.d. DISCHARGE INSTRUCTIONS: Patient was instructed to follow up with the PCP in about 1-2 weeks and was instructed to follow up with Dr. Miguel in the clinic tomorrow. Dictated By: MD ANTONETTE Benavides/sedrick/filiberto /Document#: [id number]
[2017-06-18 07:30] VITALS: BP 93/52; RESP 18
== END 2017-06-17 18:54 | disposition home or self-care (01) | DRG 313 ==
LOC: E/R 16:42 → MS4 23:32
PROVIDERS: ADMIT Internal Medicine Nephrology; ATTEND Internal Medicine Nephrology
DX: R07.89 Other chest pain (principal); I25.5 Ischemic cardiomyopathy; I10 Essential (primary) hypertension; Z95.1 Presence of aortocoronary bypass graft; F17.200 Nicotine dependence, unspecified, uncomplicated
CPT/HCPCS: 36415; 71010; 71275; 75635; 80048; 82550; 82553; 84484; 85025; 85610; 85730; 87081; 93005; 93306; 96374; J2270; Q9967

== ENCOUNTER 2017-09-13 19:14 | Observation (INO) | payer MEDICAID, OTHER ==
[~2017-09-13] VITALS: Ht 182.9 cm; Wt 74.3 kg
[~2017-09-13 19:14] MED LIST changes: +ALBU18HF INHALATION; +ALPR1TAB2 PO; +CARI350T PO; +FLUT16SP17 NASAL; +GABA300C16 PO; -IBUP-1542 PO; +OMEP20CA16 PO; +ZOLP10TA PO
[2017-09-13] MEDS ORDERED: NITROGLYCERIN 2% 1 GM OINT PKT TD STA (20:49)
[2017-09-13] MEDS ORDERED: ASPIRIN 81 MG TAB PO STA (20:49)
[2017-09-13] MEDS ORDERED: morphine 4 MG/ML VIAL IV STA (20:52)
[2017-09-13] MEDS ORDERED: ONDANSETRON 4 MG INJ IV STA (20:52)
[2017-09-13] MEDS ORDERED: NITROGLYCERIN (SL) 0.4 MG TAB SL PRN (21:00)
[2017-09-13 21:24] LABS: BASOPHIL # 0.1 10^3/ul (0.0-0.1); EOSINOPHILS # 0.3 10^3/ul (0.0-0.5); EOSINOPHILS % 2.7 % (0.0-7.0); HEMATOCRIT 40.2 % (42.0-52.0); HEMOGLOBIN 13.8 g/dl (14.0-18.0); LYMPHOCYTES # 3.3 10^3/ul (0.8-2.9); MEAN CORPUSCULAR HEMOGLOBIN 30.5 pg (29.0-33.0); MEAN CORPUSCULAR HGB CONC 34.3 g/dl (32.0-37.0); MEAN CORPUSCULAR VOLUME 88.9 fl (82.0-101.0); MEAN PLATELET VOLUME 9.7 fl (7.4-10.4); MONOCYTE # 0.7 10^3/ul (0.3-0.9); MONOCYTES % 6.9 % (0.0-11.0); NEUTROPHIL # 5.1 10^3/ul (1.6-7.5); NEUTROPHILS % 54.2 % (39.0-77.0); PLATELET COUNT 248 10^3/UL (140-415); RED BLOOD COUNT 4.52 10^6/ul (4.70-6.10); RED CELL DISTRIBUTION WIDTH 12.4 % (11.5-14.5); WHITE BLOOD COUNT 9.4 10^3/ul (4.8-10.8)
[2017-09-13 21:46] LABS: INR 1.06; PROTIME 13.9 Sec (11.9-14.9); PT RATIO 1.1
[2017-09-13 21:47] LABS: PARTIAL THROMBOPLASTIN TIME 31.4 Sec (25.0-35.0)
[2017-09-13 21:49] LABS: ANION GAP 14 (8-16); BLOOD UREA NITROGEN 12 mg/dl (7-20); CALCIUM 9.7 mg/dl (8.4-10.2); CARBON DIOXIDE 31 mmol/L (21-31); CHLORIDE 100 mmol/L (97-110); CREATININE 0.88 mg/dl (0.61-1.24); GLUCOSE 119 mg/dl (70-220); POTASSIUM 3.9 mmol/L (3.5-5.1); SODIUM 141 mmol/L (135-144)
[2017-09-13 22:02] LABS: TROPONIN-I < 0.012 ng/ml (0.00-0.12)
--- NOTE | 2017-09-13 22:55 | ERD ---
ER Documentation Chief Complaint Chief Complaint chest pain/sob x 3 days HPI Patient is a 52-year-old male with coronary disease and hypertension who presents with chest pain. He describes it as a pressure and with palpitations. It started 3 days ago and comes and goes but is getting worse. He said that he was having chest pain with doing minimal activity like walking upstairs. He went to the [facility] a few days ago but did not get admitted at that time. His primary doctor is Dr. Sotelo. Upon review of old medical records this is the patient's seventh visit since 2009. ROS All systems reviewed and are negative except as per history of present illness. Medications Home Meds Active Scripts Metoprolol Tartrate* (Lopressor*) 25 Mg Tab, 12.5 MG PO BID, #60 TAB Prov:CINDY SMITH MD 06/17/17 Atorvastatin* (Atorvastatin*) 80 Mg Tablet, 80 MG PO DAILY@21 for 30 Days, TAB Prov:CINDY SMITH MD 05/21/17 Clopidogrel Bisulfate (Clopidogrel) 75 Mg Tablet, 75 MG PO DAILY for 30 Days, # 30 TAB ask cards for refill or not Prov:CINDY SMITH MD 05/21/17 Lisinopril* (Lisinopril*) 2.5 Mg Tablet, 2.5 MG PO DAILY, #30 TAB Prov:CINDY SMITH MD 05/21/17 Reported Medications Albuterol Sulfate* (Ventolin HFA*) 18 Gm Hfa.aer.ad, 2 PUFF INHALATION Q6H, #1 INHALER 06/16/17 Carisoprodol* (Soma*) 350 Mg Tablet, 350 MG PO Q8H Y for MUSCLE SPASMS, TAB 06/16/17 Omeprazole* (Omeprazole*) 20 Mg Capsule.dr, 20 MG PO DAILY, #30 CAP 06/16/17 Gabapentin* (Gabapentin*) 300 Mg Capsule, 300 MG PO QHS, #30 CAP 06/16/17 Fluticasone Propionate* (Fluticasone Propionate* Nasal) 50 Mcg/Vonore - 16 Gm Vonore.susp, 1 SPRAY NASAL DAILY, #1 BOTTLE TO EACH NOSTRIL 06/16/17 Alprazolam* (Xanax*) 1 Mg Tab, 1 MG PO NEEDED Y for ANXIETY, TAB 06/16/17 Zolpidem Tartrate* (Ambien*) 10 Mg Tablet, 10 MG PO QHS Y for INSOMNIA, TAB 06/16/17 Aspirin (Low Dose Aspirin) 81 Mg Tablet.dr, 81 MG PO DAILY, #30 TAB 07/09/16 Escitalopram Oxalate* (Lexapro*) 20 Mg Tablet, 20 MG PO DAILY, #30 TAB 07/09/16 Hydrocodone/Acetaminophen ([place] 10-325 Tablet) 1 Each Tablet, 1 EACH PO Q6 Y for PAIN, TAB 07/09/16 Allergies Allergies: Coded Allergies: No Known Drug Allergy (Verified Allergy, Unknown, 06/16/17) PMhx/Soc History of Surgery: Yes (cabg, stent placement, back surgery) Anesthesia Reaction: No Hx Neurological Disorder: No Hx Respiratory Disorders: No Hx Cardiac Disorders: Yes (htn, [place]) Hx Miscellaneous Medical Probl: No Hx Alcohol Use: No (denies) Hx Substance Use: No Hx Tobacco Use: No (denies) Smoking Status: Former smoker FmHx Family History: No coronary disease Physical Exam Vitals Vital Signs Date Time Temp Pulse Resp B/P Pulse Ox O2 Delivery O2 Flow Rate FiO2 09/13/17 21:08 63 18 111/16 99 Room Air 09/13/17 19:18 98.7 84 20 126/62 100 Physical Exam Const: Mild distress Head: Atraumatic Eyes: Normal Conjunctiva ENT: Normal External Ears, Nose and Mouth. Neck: Full range of motion..~ No meningismus. Resp: Clear to auscultation bilaterally Cardio: Regular rate and rhythm, no murmurs Abd: Soft, non tender, non distended. Normal bowel sounds Skin: No petechiae or rashes Back: No midline or flank tenderness Ext: No cyanosis, or edema Neur: Awake and alert Psych: Normal Mood and Affect Result Diagram: 09/13/17 2100 09/13/17 2100 Results 24 hrs Laboratory Tests Test 09/13/17 21:00 White Blood Count 9.410^3/ul Red Blood Count 4.5210^6/ul Hemoglobin 13.8g/dl Hematocrit 40.2% Mean Corpuscular Volume 88.9fl Mean Corpuscular Hemoglobin 30.5pg Mean Corpuscular Hemoglobin Concent 34.3g/dl Red Cell Distribution Width 12.4% Platelet Count 16523^3/UL Mean Platelet Volume 9.7fl Neutrophils % 54.2% Lymphocytes % 35.0% Monocytes % 6.9% Eosinophils % 2.7% Basophils % 1.0% Nucleated Red Blood Cells % 0.0/100WBC Neutrophils # 5.110^3/ul Lymphocytes # 3.310^3/ul Monocytes # 0.710^3/ul Eosinophils # 0.310^3/ul Basophils # 0.110^3/ul Nucleated Red Blood Cells # 0.010^3/ul Prothrombin Time 13.9Sec Prothrombin Time Ratio 1.1 INR International Normalized Ratio 1.06 Activated Partial Thromboplast Time 31.4Sec Sodium Level 141mmol/L Potassium Level 3.9mmol/L Chloride Level 100mmol/L Carbon Dioxide Level 31mmol/L Anion Gap 14 Blood Urea Nitrogen 12mg/dl Creatinine 0.88mg/dl Glucose Level 119mg/dl Calcium Level 9.7mg/dl Troponin I < 0.012ng/ml Current Medications Medications (Trade) Dose Ordered Sig/Echo Route PRN Reason Start Time Stop Time Status Last Admin Dose Admin Aspirin (Aspirin) 162 mg ONCE STAT PO 09/13/17 20:49 09/13/17 20:50 DC 09/13/17 21:24 Nitroglycerin (Nitroglycerin 2% Oint) 1 inch ONCE STAT TD 09/13/17 20:49 09/13/17 20:50 DC 09/13/17 21:26 Nitroglycerin (Nitroglycerin (Sl Tab) 0.4 Mg) 1 tab Q5M UP TO 3 DOSES PRN SL CHEST PAIN 09/13/17 21:00 Morphine Sulfate (morphine) 4 mg ONCE STAT IV 09/13/17 20:52 09/13/17 20:53 DC 09/13/17 21:25 Ondansetron HCl (Zofran Inj) 4 mg ONCE STAT IV 09/13/17 20:52 09/13/17 20:53 DC 09/13/17 21:24 Procedures/MDM EKG #1 read by me: Rate/Rhythm: Regular rate and rhythm at a rate of 77 Intervals: Normal Impression: No evidence of ischemia or arrhythmia EKG #2 read by me: Rate/Rhythm: Regular rate and rhythm at a rate of 61 Intervals: Normal Impression: No evidence of ischemia or arrhythmia Chest X-ray 1V Interpreted by me: Soft Tissue: No acute abnormalities Bones: No acute abnormalities Mediastinum/Cardiac Silhouette/Lungs: No acute abnormalities Patient is a 52-year-old male with significant cardiac risk factors and previous OH with CABG who presents with chest pain. His pain is worse with walking upstairs I am concerned about acute coronary syndrome. I doubt pneumonia, pneumothorax, pulmonary embolism, or aortic dissection. The patient was given aspirin, nitroglycerin, and morphine. The patient will be admitted to the care of Dr. Smith who is covering for Dr. Bro who admitted the patient previously. The patient will be admitted to a telemetry observation bed. Departure Diagnosis: Primary Impression: Chest pain Chest pain type: unspecified Qualified Code: R07.9 - Chest pain, unspecified type Additional Impression: Anemia Anemia type: unspecified type Qualified Code: D64.9 - Anemia, unspecified type Condition: CHEYENNE Sifuentes MD Sep 13, 2017 22:55
[2017-09-13] MEDS ORDERED: ACETAMINOPHEN 325 MG TAB PO PRN (23:00)
[2017-09-13] MEDS ORDERED: ONDANSETRON 4 MG INJ IV PRN (23:00)
--- NOTE | 2017-09-13 23:00 | RADRPT ---
PROCEDURE: XR Chest. CLINICAL INDICATION: Chest pain. TECHNIQUE: Single frontal view of the chest was obtained COMPARISON: Chest radiograph dated July 09, 2016. FINDINGS: The heart and mediastinum are within normal limits. The lungs are clear. There is no pleural effusion or pneumothorax. The osseous structures are unremarkable. IMPRESSION: 1. No acute cardiopulmonary disease. RPTAT:AAJJ Physician Kenzie Date Time Electronically viewed and signed by Reba Frias Physician on 09/13/2017 23:00 QL/
[2017-09-13] MEDS ORDERED: KETOROLAC 30 MG INJ IV STA (23:36)
[2017-09-14] VITALS (10 sets, daily range): BP systolic 90–111; BP diastolic 52–69; PULSE 52–65; RESP 18–20; TEMP 98; Ht 182.9 cm; Wt 74.3 kg
[2017-09-14] MEDS ORDERED: SOD CHLORIDE 0.9% 1,000 ML IV ONE
[2017-09-14] MEDS ORDERED: LIDOCAINE/MYLANTA 40 ML BTL PO ONE
[2017-09-14] MEDS ORDERED: HYDROCODONE/APAP (5/325) TAB PO ONE (04:00)
[2017-09-14 04:59] LABS: CREATINE KINASE 86 IU/L (23-200)
[2017-09-14 05:26] LABS: CK-MB 1.24 ng/ml (0.0-2.4); TROPONIN-I < 0.012 ng/ml (0.00-0.12)
[2017-09-14] MEDS ORDERED: CARISOPRODOL 350 MG TAB PO PRN (07:00)
[2017-09-14] MEDS ORDERED: ALPRAZOLAM 1 MG TAB PO PRN (07:00)
[2017-09-14] MEDS ORDERED: NACL 0.9% 3 ML SYG IV SCH (07:00)
[2017-09-14] MEDS ORDERED: ONDANSETRON 4 MG INJ IV PRN (07:00)
[2017-09-14] MEDS ORDERED: MAGNESIUM HYDROXIDE 30ML CUP PO PRN (07:00)
[2017-09-14] MEDS ORDERED: ACETAMINOPHEN 325 MG TAB PO PRN (07:00)
[2017-09-14] MEDS ORDERED: HYDROCODONE/APAP (10/325) TAB PO PRN (07:00)
[2017-09-14] MEDS ORDERED: ZOLPIDEM 5 MG TAB PO PRN (07:00)
[2017-09-14] MEDS ORDERED: HYDROCODONE/APAP (5/325) TAB PO PRN (07:00)
[2017-09-14] MEDS: ALBUTEROL HFA 8 GM INHALER INH SCH ×3 (08:00→20:13)
[2017-09-14] MEDS ORDERED: METOPROLOL 25 MG TAB PO SCH (09:00)
[2017-09-14] MEDS: FLUTICASONE 0.05% 16 GM NAS SPRAY NASAL SCH (09:00)
[2017-09-14] MEDS: ESCITALOPRAM 10 MG TAB PO SCH (09:24)
[2017-09-14] MEDS: ASPIRIN (EC) 81 MG TAB PO SCH (09:24)
[2017-09-14] MEDS: LISINOPRIL 5 MG TAB PO SCH (09:25)
[2017-09-14] MEDS: CLOPIDOGREL 75 MG TAB PO SCH (09:25)
[2017-09-14] MEDS: morphine 2 MG INJ IV PRN ×3 (11:26→20:14)
[2017-09-14 12:35] LABS: CREATINE KINASE 72 IU/L (23-200)
[2017-09-14 12:49] LABS: CK-MB 1.09 ng/ml (0.0-2.4); TROPONIN-I < 0.012 ng/ml (0.00-0.12)
--- NOTE | 2017-09-14 13:45 | HP ---
Date/Time of Note Date/Time of Note DATE: 09/14/17 TIME: 13:40 Assessment/Plan VTE Prophylaxis VTE Prophylaxis Intervention: ambulation, LMWH Lines/Catheters IV [facility]ter [facility]from [facility] [place] Assessment/Plan Chief Complaint/Hosp Course 1. Acute coronary syndrome 2. CAD 3. Anemia 4. former smoker 5. HX of angioplasty 2016 6. Hx of AR 7. Hx of bypass heart surgery 8. Hypertension, controlled 9. dyslipidemia Problems: Assessment/Plan 1. Telemetry observation 2. cardiology consult Dr Shin responded 3. series of troponin negative 4. Drug screen urine HPI/ROS Admit Date/Time Admit Date/Time Sep 13, 2017 at 22:49 Hx of Present Illness Patient is a 52-year-old male with coronary disease and hypertension who presents with chest pain. He describes it as a pressure, palpitations, pounding and SOB. It started 4 days ago and comes and goes but is getting worse. Pt reported chest pain with minimal activity like walking upstairs. He went to the [place] ER a few days ago but did not get admitted at that time. His primary doctor is Dr. Sotelo. denied other complaints ROS Eyes: no complaints ENT: no complaints Respiratory: cough, no complaints, other, pain, pleuritic pain, shortness of breath, sputum, wheezing Cardiovascular: chest pain, edema, lightheadedness, no complaints, orthopenea, other, palpitations, paroxysmal nocturnal dyspnea Gastrointestinal: blood, constipation, pain, No decreased appetite, No diarrhea, No flatus, No nausea, No no complaints, No other, No passing stool, No vomiting Genitourinary: bleeding, dysuria, flank pain, No discharge, No hematuria, No no complaints, No other Musculoskeletal: bone/joint pain, restricted range of motion, No back pain, No neck pain, No no complaints, No other, No swelling Skin: bruising, laceration, No erythema, No no complaints, No other, No pruritis, No rash, No skin lesions Neurologic: dizziness, No focal-weakness, No headache, No no complaints, No other, No seizure, No syncope Endocrine: no complaints Lymphatic: no complaints Psychological: no complaints Immunologic: no complaints PMH/Family/Social Past Medical History Medical History: coronary artery disease Past Surgical History Past Surgical Hx: angioplasty (2016 with one stenting), coronary bypass surgery (2002), other (discectomy L4-L5) Social History Lives with and children Alcohol Use: none Smoking Status: Former smoker Drug Use: none Exam/Review of Systems Vital Signs Vitals Vital Signs Date Time Temp Pulse Resp B/P Pulse Ox O2 Delivery O2 Flow Rate FiO2 09/14/17 13:01 65 09/14/17 11:02 98.0 18 111/69 97 09/14/17 05:00 Room Air Exam Constitutional: alert, oriented Psych: no complaints Head: normocephalic Eyes: nl conjunctiva ENMT: nl external ears & nose, nl lips & teeth Neck: jvd, supple, thyromegaly, No bruits, No masses, No non-tender, No nuchal rigidity, No other Respiratory: clear to auscultation Cardiovascular: diastolic murmur, edema, regular rate and rhythm, No S3, No S4, No bruits, No gallop, No irregular rhythm, No jugular venous distention (JVD), No murmurs/extra sounds, No nl pulses, No other, No rub, No systolic murmur Gastrointestinal: soft Musculoskeletal: nl extremities to inspection Extremities: normal pulses Labs Result Diagram: 09/13/17209909/13/172099 Medications Medications Current Medications Ondansetron HCl (Zofran Inj) 4 mg Q6H PRN IV NAUSEA AND/OR VOMITING; Start at 07:00 Acetaminophen (Tylenol Tab) 650 mg Q6H PRN PO PAIN LEVEL 1-3 OR FEVER; Start 09/14/17 at 07:00 Acetaminophen/ Hydrocodone Bitart ([place] (5/325)) 1 tab Q6H PRN PO MODERATE PAIN LEVEL 4-6; Start 09/14/17 at 07:00 Morphine Sulfate (morphine) 2 mg Q4H PRN IV SEVERE PAIN LEVEL 7-10 Last administered on 09/14/17t 11:26; Admin Dose 2 MG; Start 09/14/17 at 07:00 Magnesium Hydroxide (Milk Of Mag) 30 ml DAILY PRN PO CONSTIPATION; Start 09/14 at 07:00 Pantoprazole (Protonix Tab) 40 mg DAILY@06 PO ; Start 09/15/17 at 06:00 Alprazolam (Xanax) 1 mg Q12 PRN PO ANXIETY; Start 09/14/17 at 07:00 Aspirin (Halfprin) 81 mg DAILY PO Last administered on 09/14/17 09:24; Admin Dose 81 MG; Start 09/14/17 at 09:00 Atorvastatin Calcium (Lipitor) 80 mg DAILY@21 PO ; Start 09/14/17 at 21:00 Carisoprodol (Soma) 350 mg Q8H PRN PO MUSCLE SPASMS; Start 09/14/17 at 07:00 Clopidogrel Bisulfate (plaVIX) 75 mg DAILY PO Last administered on 09/14/17 09:25; Admin Dose 75 MG; Start 09/14/17 at 09:00 Escitalopram Oxalate (Lexapro) 20 mg DAILY PO Last administered on 09/14/17 09:24; Admin Dose 20 MG; Start 09/14/17 at 09:00 Fluticasone Propionate (Flonase 0.05% Nasal) 1 spray DAILY NASAL ; Start at 09:00 Gabapentin (Neurontin) 300 mg QHS PO ; Start 09/14/17 at 21:00 Acetaminophen/ Hydrocodone Bitart ([place] (10/325)) 1 tab Q6 PRN PO PAIN; Start 09/14/17 at 07:00 Lisinopril (Zestril) 2.5 mg DAILY PO Last administered on 09/14/17 09:25; Admin Dose 2.5 MG; Start 09/14/17 at 09:00 Metoprolol Tartrate (Lopressor) 12.5 mg BID PO ; Start 09/14/17 at 09:00 Zolpidem Tartrate (Ambien) 10 mg QHS PRN PO INSOMNIA; Start 09/14/17 at 07:00 LUIZA LUIS Sep 14, 2017 13:45
[2017-09-14 16:03] LABS: CREATINE KINASE 63 IU/L (23-200)
[2017-09-14 16:18] LABS: CK-MB 1.05 ng/ml (0.0-2.4); TROPONIN-I < 0.012 ng/ml (0.00-0.12)
[2017-09-14 19:14] LABS: BARBITURATES Negative (NEGATIVE); BENZODIAZEPINES Negative (NEGATIVE)
[2017-09-14 19:15] LABS: CANNABINOIDS Negative (NEGATIVE); COCAINE Negative (NEGATIVE); OPIATES Positive (NEGATIVE)
[2017-09-14] MEDS ORDERED: GABAPENTIN 300 MG CAP PO SCH (21:00)
[2017-09-14] MEDS ORDERED: ATORVASTATIN 80 MG TAB PO SCH (21:00)
[2017-09-15] VITALS (7 sets, daily range): BP systolic 107–119; BP diastolic 60–64; PULSE 59–68; RESP 18–20
[2017-09-15] MEDS: ALBUTEROL HFA 8 GM INHALER INH SCH ×3 (02:00→14:00)
[2017-09-15] MEDS ORDERED: PANTOPRAZOLE (EC) 40 MG TAB PO SCH (06:00)
[2017-09-15 06:50] LABS: BASOPHIL # 0.1 10^3/ul (0.0-0.1); BASOPHILS % 0.9 % (0.0-2.0); EOSINOPHILS # 0.4 10^3/ul (0.0-0.5); EOSINOPHILS % 5.1 % (0.0-7.0); HEMATOCRIT 37.9 % (42.0-52.0); HEMOGLOBIN 12.7 g/dl (14.0-18.0); LYMPHOCYTES # 2.2 10^3/ul (0.8-2.9); LYMPHOCYTES % 28.9 % (15.0-51.0); MEAN CORPUSCULAR HEMOGLOBIN 30.4 pg (29.0-33.0); MEAN CORPUSCULAR HGB CONC 33.5 g/dl (32.0-37.0); MEAN CORPUSCULAR VOLUME 90.7 fl (82.0-101.0); MEAN PLATELET VOLUME 10.1 fl (7.4-10.4); MONOCYTE # 0.6 10^3/ul (0.3-0.9); MONOCYTES % 7.7 % (0.0-11.0); NEUTROPHIL # 4.4 10^3/ul (1.6-7.5); NEUTROPHILS % 57.1 % (39.0-77.0); PLATELET COUNT 193 10^3/UL (140-415); RED BLOOD COUNT 4.18 10^6/ul (4.70-6.10); RED CELL DISTRIBUTION WIDTH 12.4 % (11.5-14.5); WHITE BLOOD COUNT 7.7 10^3/ul (4.8-10.8)
[2017-09-15 07:15] LABS: CALCIUM 8.6 mg/dl (8.4-10.2); CREATININE 0.77 mg/dl (0.61-1.24); POTASSIUM 4.1 mmol/L (3.5-5.1)
--- NOTE | 2017-09-15 08:13 | CONS ---
Date/Time of Note Date/Time of Note DATE: 09/15/17 TIME: 08:06 Assessment/Plan Assessment/Plan Chief Complaint/Hosp Course 1) Chest pain suggestive of chronic stable angina 2) habitual hypotension exacerbated by metoprolol 3) no dynamic EKG changes 4) negative biomarkers 5) Borderline LV function 6) CAD 7) h/o Stemi with RCA PCI 8) CABG 9) HLP Problems: Additional Assessment/Plan 1) Ranexa 500 bid 2) Hold metoprolol 3) No cesilia due to borderline habitual blood pressures 4) Avoidance of very strenuous activities 5) outpatient fu (I called the office and asked to arrange for fu appt soon) 6) ASA and pavix 7) I asked patient to return to ED with complaints Consultation Date/Type/Reason Admit Date/Time Sep 13, 2017 at 22:49 Reason for Consultation chest pain 24 HR Interval Summary Free Text/Dictation patient admitted w chest pain, pressure, he is currently moving, and chest pain occurs mid chest, pressure, no radiation associated with SOB, mild degree, triggered w lifting very heavy items, no distress, patient asks for disability which he states he could not get as outpatient. reports dizziness with metoprolol. patient reports such chest pain since years, but more aggravated recently with move. Detailed Summary Respiratory: shortness of breath Cardiovascular: chest pain Gastrointestinal: no complaints Genitourinary: no complaints Musculoskeletal: no complaints Neurologic: no complaints Endocrine: no complaints Exam/Review of Systems Vital Signs Vitals Vital Signs Date Time Temp Pulse Resp B/P Pulse Ox O2 Delivery O2 Flow Rate FiO2 09/15/17 07:42 98.3 55 18 119/64 98 09/14/17 05:00 Room Air Intake and Output 09/14/17 09/14/17 09/15/17 15:00 23:00 07:00 Intake Total 500 ml Balance 500 ml Exam Constitutional: alert, oriented Head: atraumatic, normocephalic Neck: supple Respiratory: clear to auscultation Cardiovascular: regular rate and rhythm Gastrointestinal: soft Musculoskeletal: nl extremities to inspection Extremities: normal pulses Results Result Diagram: 09/15/17 0551 09/15/17 0551 Results 24 hrs Laboratory Tests Test 09/14/17 11:05 09/14/17 15:34 09/14/17 17:00 09/15/17 05:51 Creatine Kinase 72 63 Creatine Kinase Index 1.5 1.7 Creatinine Kinase MB (Mass) 1.09 1.05 Troponin I < 0.012 < 0.012 Urine Opiates Screen Positive Urine Barbiturates Negative Urine Amphetamines Screen Negative Urine Benzodiazepines Screen Negative Urine Cocaine Screen Negative Urine Cannabinoids Negative White Blood Count 7.7 Red Blood Count 4.18 L Hemoglobin 12.7 L Hematocrit 37.9 L Mean Corpuscular Volume 90.7 Mean Corpuscular Hemoglobin 30.4 Mean Corpuscular Hemoglobin Concent 33.5 Red Cell Distribution Width 12.4 Platelet Count 193 # Mean Platelet Volume 10.1 Neutrophils % 57.1 Lymphocytes % 28.9 Monocytes % 7.7 Eosinophils % 5.1 Basophils % 0.9 Nucleated Red Blood Cells % 0.0 Neutrophils # 4.4 Lymphocytes # 2.2 Monocytes # 0.6 Eosinophils # 0.4 Basophils # 0.1 Nucleated Red Blood Cells # 0.0 Sodium Level 140 Potassium Level 4.1 Chloride Level 102 Carbon Dioxide Level 29 Anion Gap 13 Blood Urea Nitrogen 12 Creatinine 0.77 Glucose Level 108 Calcium Level 8.6 Medications Medications Current Medications Ondansetron HCl (Zofran Inj) 4 mg Q6H PRN IV NAUSEA AND/OR VOMITING; Start at 07:00 Acetaminophen (Tylenol Tab) 650 mg Q6H PRN PO PAIN LEVEL 1-3 OR FEVER; Start 09/14/17 at 07:00 Acetaminophen/ Hydrocodone Bitart (Margie (5/325)) 1 tab Q6H PRN PO MODERATE PAIN LEVEL 4-6; Start 09/14/17 at 07:00 Morphine Sulfate (morphine) 2 mg Q4H PRN IV SEVERE PAIN LEVEL 7-10 Last administered on 09/14/17 20:14; Admin Dose 2 MG; Start 09/14/17 at 07:00 Magnesium Hydroxide (Milk Of Mag) 30 ml DAILY PRN PO CONSTIPATION; Start 09/14 at 07:00 Pantoprazole (Protonix Tab) 40 mg DAILY@06 PO Last administered on 09/15/17 05:33; Admin Dose 40 MG; Start 09/15/17 at 06:00 Alprazolam (Xanax) 1 mg Q12 PRN PO ANXIETY; Start 09/14/17 at 07:00 Aspirin (Halfprin) 81 mg DAILY PO Last administered on 09/14/17 09:24; Admin Dose 81 MG; Start 09/14/17 at 09:00 Atorvastatin Calcium (Lipitor) 80 mg DAILY@21 PO Last administered on 20:13; Admin Dose 80 MG; Start 09/14/17 at 21:00 Carisoprodol (Soma) 350 mg Q8H PRN PO MUSCLE SPASMS; Start 09/14/17 at 07:00 Clopidogrel Bisulfate (plaVIX) 75 mg DAILY PO Last administered on 09/14/17 09:25; Admin Dose 75 MG; Start 09/14/17 at 09:00 Escitalopram Oxalate (Lexapro) 20 mg DAILY PO Last administered on 09/14/17 09:24; Admin Dose 20 MG; Start 09/14/17 at 09:00 Fluticasone Propionate (Flonase 0.05% Nasal) 1 spray DAILY NASAL ; Start at 09:00 Gabapentin (Neurontin) 300 mg QHS PO Last administered on 09/14/17 20:13; Admin Dose 300 MG; Start 09/14/17 at 21:00 Acetaminophen/ Hydrocodone Bitart (Margie (10/325)) 1 tab Q6 PRN PO PAIN; Start 09/14/17 at 07:00 Lisinopril (Zestril) 2.5 mg DAILY PO Last administered on 09/14/17 09:25; Admin Dose 2.5 MG; Start 09/14/17 at 09:00 Zolpidem Tartrate (Ambien) 10 mg QHS PRN PO INSOMNIA; Start 09/14/17 at 07:00 ROYER BUI MD Sep 15, 2017 08:13
[2017-09-15] MEDS: morphine 2 MG INJ IV PRN (08:49)
[2017-09-15] MEDS: CLOPIDOGREL 75 MG TAB PO SCH (08:50)
[2017-09-15] MEDS: ASPIRIN (EC) 81 MG TAB PO SCH (08:50)
[2017-09-15] MEDS: LISINOPRIL 5 MG TAB PO SCH (08:50)
[2017-09-15] MEDS: FLUTICASONE 0.05% 16 GM NAS SPRAY NASAL SCH (08:50)
[2017-09-15] MEDS: ESCITALOPRAM 10 MG TAB PO SCH (08:50)
[2017-09-15] MEDS ORDERED: RANOLAZINE (SR) 500 MG TAB PO SCH (09:00)
--- NOTE | 2017-09-15 11:13 | PDOCDIS ---
Discharge Instructions DIAGNOSIS Discharge Diagnosis Chest pain on ranexa CONDITION Patient Condition: Fair HOME CARE INSTRUCTIONS: Diet Instructions: Low Fat /CholesterolSpecial Diet: Low Fat/Low Chol ACTIVITY: Activity Restrictions: Avoid heavy lifting Avoid Heavy Housework FOLLOW UP/APPOINTMENTS Follow-up Plan F/u Dr Miguel in 1 week Return to ER if has chest pain /sob Take CINDY Sosa MD Sep 15, 2017 11:13
[2017-09-15] MEDS ORDERED: RANO500T2 PO (11:15)
--- NOTE | 2017-09-16 07:00 | DS ---
DATE OF ADMISSION: 09/13/2017 DATE OF DISCHARGE: 09/15/2017 REASON FOR ADMISSION: Chest pain. HISTORY OF PRESENT ILLNESS AND HOSPITAL COURSE: This is a 52-year-old male with a past medical hist ory of hypertension, coronary artery disease, single vessel COOPER to LAD CABG in 2000 at [facility] , history of smoking, history of recent admission in April due to ST elevation myocardial infarctio n, history of pericarditis post-[place], hypertension, smoker, presented to the emergency department on t he , complaining of chest pain described as a pressure, palpitations, pounding and shortness of breath started 4 days ago, comes and goes and getting worse. The patient was admitted to telemetry. The patient had this pain triggered with heavy lifting. Report dizziness with metoprolol. On adm ission blood pressure 119/64, pulse 55, respirations 18. The patient had serial troponins that were negative. No dynamic ST-T wave changes. The patient was given some nitro for pain. The patient w as seen by Dr. Ej Mondragon for cardiology consultation and as per him chest pain was suggestiv e of chronic stable angina. Recommended the patient to be started on Ranexa 500 b.i.d., hold metopr olol, no DARINEL due to borderline habitual blood pressures, avoidance of strenuous exercises, and he wi ll follow up in the office. Continue on aspirin and Plavix and return precautions explained. Curre ntly, the patient is not having any chest pain. Vital signs are stable, and stable to be discharged home per cardiology. FINAL DISCHARGE DIAGNOSES: 1. Chest pain suggestive of chronic stable angina. 2. Habitual hypertension exacerbated by metoprolol. 3. No dynamic EKG changes. 4. Coronary artery disease. 5. History of STEMI with percutaneous coronary intervention right coronary artery. 6. History of coronary artery bypass graft. 7. Hyperlipidemia. 8. History of smoking. DISCHARGE INSTRUCTIONS: The patient was told to follow up with the PCP in about 1 week. The patien t was instructed to follow up with Dr. Jay, to make an appointment in 1 to 2 weeks. DISCHARGE MEDICATIONS: 1. Aspirin 81 mg p.o. daily. 2. Plavix 75 mg p.o. every day. 3. Ranexa 500 mg p.o. every day. Continued medications: 1. Albuterol 1 mg p.o. as needed for anxiety. 2. Atorvastatin 80. 3. Soma 350 q.8 p.r.n. muscle spasm. 4. Lexapro 20. 5. Gabapentin 300. 6. [place]. 7. Prilosec. 8. Zolpidem. STOPPED MEDICATIONS: 1. Lisinopril 2.5 mg p.o. daily. 2. Metoprolol due to hypertension and metoprolol 24.5 mg p.o. b.i.d. due to bradycardia and hypoten maryann. DISCHARGE CONDITION: Stable. The patient was instructed about the return precautions to return to the ER if he had worsening chest pain, shortness of breath . Dictated By: CINDY WHITMAN/TAMMIE Conf#: [id number] DID#: [id number] CC: JUANITO JAY MD; MAGNUS HODGES MD;*EndCC*
== END 2017-09-15 16:28 | disposition home or self-care (01) ==
LOC: E/R 19:14 → TEL 22:49 → INTOOBSV 22:49 → E/R 09-14 06:25
PROVIDERS: ADMIT Internal Medicine Nephrology; ATTEND Internal Medicine Nephrology
DX: R07.9 Chest pain, unspecified (principal); I25.10 Atherosclerotic heart disease of native coronary artery without angina pectoris; Z95.5 Presence of coronary angioplasty implant and graft; Z95.1 Presence of aortocoronary bypass graft; I10 Essential (primary) hypertension; D64.9 Anemia, unspecified; I25.2 Old myocardial infarction; E78.5 Hyperlipidemia, unspecified; Z79.82 Long term (current) use of aspirin; Z87.891 Personal history of nicotine dependence
CPT/HCPCS: 36415; 71010; 80048; 80307; 82550; 82553; 84484; 85025; 85610; 85730; 93005; 96374; 96375; 96376; J1885; J2270; J2405; J7030; Z7500; Z7502; Z7610; G0378

== ENCOUNTER 2018-03-09 19:26 | Emergency (ER) | END 2018-03-09 22:40 | disposition left against medical advice (07) ==

== ENCOUNTER 2018-03-21 16:28 | Emergency (ER) | END 2018-03-21 20:25 | disposition home or self-care (01) ==